=== PATIENT | female | born 1985 | race Caucasian/White ===

== ENCOUNTER 2016-12-03 09:08 | Inpatient (IN) | payer BC ==
[2016-12-03 09:37] VITALS: BMI 25.8
--- NOTE | 2016-12-03 12:24 | HP ---
COWS - Scale Resting Pulse: 1= CT 81-100 Sweatin= Chills/Flushing Restless Observation: 3= Extraneous Movement Pupil Size: 2= Moderately Dilated Bone or Joint Aches: 4=Acute Joint/Muscle Pain Runny Nose/ Eye Tearin= None GI Upset > 30mins: 2= Nausea/Diarrhea Tremor Observation: 2= Slight Tremor Visible Yawning Observation: 1= 1-2x During Session Anxiety or Irritability: 2=Irritable/Anxious Goose Flesh Skin: 0=Smooth Skin COWS Score: 18 CIWA Score - CIWA Score Nausea/Vomitin Muscle Tremors: 3 Anxiety: 4-Mod. Anxious/Guarded Agitation: 3 Paroxysmal Sweats: 1-Minimal Palms Moist Orientation: 0-Oriented Tacttile Disturbances: 3-Moderate Itch/Numb/Burn Auditory Disturbances: 0-None Visual Disturbances: 0-None Headache: 2-Mild CIWA-Ar Total Score: 19 Admission ROS S - HPI Chief Complaint: DETOX TX FOR HEROIN, VICODAN AND ALCOHOL DEPENDENCE AND SPORADIC USE OF XANAX. Allergies/Adverse Reactions: Allergies Allergy/AdvReac Type Severity Reaction Status Date / Time No Known Allergies Allergy Verified 12/03/16 10:38 History of Present Illness: 31 Y/O FEMALE WITH A HX OF HEROIN, VICODAN,AND ALCOHOL DEPENDENCE AND SOME DAYS USE OF XANAX HERE SEEKING DETOX TX Exam Limitations: No Limitations - Ebola screening Have you traveled outside of the country in the last 21 days: No Have you had contact with anyone from an Ebola affected area: No Have you been sick,other than usual withdrawal symptoms: No Do you have a fever: No - Review of Systems Constitutional: Chills, Loss of Appetite, Night Sweats, Changes in sleep EENT: reports: Blurred Vision (WEARS GLASSES), Tearing, Nose Congestion, Dental Problems (MISSING TEETH LEFT SIDE TOP/BOTTOM) Respiratory: reports: No Symptoms reported Cardiac: reports: Lightheadedness GI: reports: Constipated, Diarrhea, Nausea, Poor Appetite, Poor Fluid Intake, Vomiting, Indigestion, Abdominal cramping : reports: Dysuria, Pain Musculoskeletal: reports: Back Pain, Joint Pain, Muscle Pain Integumentary: reports: No Symptoms Reported Neuro: reports: Headache, Tremors, Unsteady Gait, Dizziness Endocrine: reports: No Symptoms Reported Hematology: reports: No Symptoms Reported Psychiatric: reports: Orientated x3, Anxious, Depressed Other Systems: Reviewed and Negative Patient History - Patient Medical History Hx Anemia: No Hx Asthma: Yes (MDI) Hx Chronic Obstructive Pulmonary Disease (COPD): No Hx Cardiac Disorders: No Hx Hypertension: No Hx Hypercholesterolemia: No HX Cerebrovascular Accident: No Hx Seizures: No Hx Diabetes: No Hx Gastrointestinal Disorders: No Hx Genitourinary Disorders: No Hx Sexually Transmitted Disorders: No Hx Renal Disease (ESRD): No Hx Thyroid Disease: Yes (HYPOTHYROIDISM--SYNTHROID 50 MCG DAILY) Hx Human Immunodeficiency Virus (HIV): No (NEGATIVE HX; REQUESTING RE-TESTING. 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 - Patient Surgical History Past Surgical History: Yes Hx Orthopedic Surgery: Yes (R knee ACL repair) Anesthesia Reaction: No - PPD History Previous Implant?: Yes Documented Results: Negative w/proof Implanted On Prior R Admission?: Yes Date: 12/24/15 Results: 0 mm PPD to be Administered?: No - Reproductive History Patient is a Female of Child Bearing Age (11 -55 yrs old): Yes Last Menstrual Period: 11/30/16 Patient : No - Smoking Cessation Smoking history: Current every day smoker Have you smoked in the past 12 months: Yes Aproximately how many cigarettes per day: 6 Hx Chewing Tobacco Use: No Initiated information on smoking cessation: Yes 'Breaking Loose' booklet given: 12/03/16 - Substance & Tx. History Hx Alcohol Use: Yes (VODKA) Hx Substance Use: Yes (HEROIN/VICODAN/PERCOCETS/XANAX) Substance Use Type: Alcohol, Heroin, Opiates, Tranquilizers Hx Substance Use Treatment: Yes ([facility]OX) - Substances Abused Heroin Route: Inhalation Frequency: Daily Amount used: 5-6 bags Age of first use: 23 Date of Last Use: 12/02/16 Alcohol-vodka Route: Oral Frequency: Daily Amount used: 2 pts. Age of first use: 18 Date of Last Use: 12/02/16 Xanax Route: Oral Frequency: Daily Amount used: 2 mg. Age of first use: 31 Date of Last Use: 12/01/16 Vicodin or Percocet Route: Oral Frequency: 1-2 times per week Amount used: 5-6 tabs. (7.5 mg.)/4 tabs. (10 mg.) Age of first use: 21 Date of Last Use: 12/03/16 Family Disease History - Family Disease History Family History: Denies Admission Physical Exam [facility] - Vital Signs Vital Signs: Vital Signs - 24 hr 12/03/16 09:33 Temperature 97.0 F L Pulse Rate 89 Respiratory 20 Rate Blood Pressure 141/89 - Physical General Appearance: Yes: Moderate Distress, Irritable, Anxious HEENTM: Yes: EOMI, Normocephalic, LILLIAN, Pharynx Normal Respiratory: Yes: Chest Non-Tender, Lungs Clear Neck: Yes: No masses,lesions,Nodules, Supple, Trachea in good position Breast: Yes: Breast Exam Deferred Cardiology: Yes: Regular Rate, S1, S2 Abdominal: Yes: Normal Bowel Sounds, Non Tender, Soft Genitourinary: Yes: Other (N/C) Back: Yes: Within Normal Limits Musculoskeletal: Yes: full range of Motion, Gait Steady Extremities: Yes: Normal Range of Motion, Non-Tender, Tremors Neurological: Yes: 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 intact, Fully Oriented, Alert, Motor Strength 5/5 Integumentary: Yes: Dry, Warm Lymphatic: Yes: Within Normal Limits - Diagnostic (1) Alcohol dependence with uncomplicated withdrawal Current Visit: Yes Status: Acute (2) Nicotine dependence Current Visit: Yes Status: Acute Qualifiers: Nicotine product type: cigarettes Substance use status: in withdrawal Qualified Code(s): F17.213 - Nicotine dependence, cigarettes, with withdrawal (3) Opioid dependence with withdrawal Current Visit: Yes Status: Acute (4) Sedative abuse Current Visit: Yes Status: Acute (5) History of hypothyroidism Current Visit: Yes Status: Chronic Comment: ON SYNTHROID 50 MCG PO DAILY (6) Asthma Current Visit: Yes Status: Chronic Qualifiers: Asthma severity: mild intermittent Asthma complication type: uncomplicated Qualified Code(s): J45.20 - Mild intermittent asthma, uncomplicated (7) HSV (herpes simplex virus) infection Current Visit: Yes Status: Acute Comment: ON VALTREX THERAPY Cleared for Admission [facility] - Detox or Rehab [facility] Level of Care: Medically Managed Detox Regimen/Protocol: Methadone/Valium [facility] Breath Alcohol Content Breath Alcohol Content: 0 Urine Pregancy Test - Result Urine Test Results: Negative- NO Line Present Urine Drug Screen - Results Drug Screen Negative: No Urine Drug Screen Results: OPI-Opiates, BZO-Benzodiazepines
[2016-12-03] MEDS ORDERED: ACETAMINOPHEN 325 MG TABLET (FP) PO PRN (12:45)
[2016-12-03] MEDS ORDERED: guaiFENesin/D-METHORPHAN HB 10 ML UNIT-DOSE CUPS PO PRN (12:45)
[2016-12-03] MEDS ORDERED: MENTHOL/PHENOL 1 EACH UD MM PRN (12:45)
[2016-12-03] MEDS ORDERED: MAGNESIUM HYDROX 2400MG/30ML ORAL SUSPENSION 30 ML CUP PO PRN (12:45)
[2016-12-03] MEDS ORDERED: P-EPHED 60MG/TRIPROLIDI 2.5MG TABLET PO PRN (12:45)
[2016-12-03] MEDS ORDERED: LOPERAMIDE HCL 2 MG CAPSULE PO PRN (12:45)
[2016-12-03] MEDS ORDERED: MAGNESIUM CITRATE 300 ML BOTTLE PO PRN (12:45)
[2016-12-03] MEDS ORDERED: MAG HYDROX/AL HYDROX/SIMETH 30 ML UNIT-DOSE CUP PO PRN (12:45)
[2016-12-03] MEDS ORDERED: diphenhydrAMINE HCL 50 MG CAPSULE PO PRN (12:45)
[2016-12-03] MEDS ORDERED: NICOTINE POLACRILEX 2 MG GUM BUC PRN (12:45)
[2016-12-03] MEDS ORDERED: diazePAM 5 MG TABLET PO ONE (13:08)
[2016-12-03] MEDS ORDERED: METHADONE HCL 10 MG TABLET (FOR DETOX USE ONLY) PO ONE ×2 (13:11→23:00)
[2016-12-03] MEDS: LEVOTHYROXINE NA 25 MCG TABLET (FP) PO SCH (13:28)
[2016-12-03] MEDS: valACYclovir HCL 500 MG TABLET (FP) PO SCH (13:28)
[2016-12-03] MEDS ORDERED: ONDANSETRON *ODT* 4 MG TABLET SL PRN (13:49)
[2016-12-03] MEDS ORDERED: TRIMETHOBENZAMIDE HCL 200MG/2ML INJ IM ONE (14:04)
[2016-12-03] MEDS: NICOTINE 14 MG/24 HOURS TOPICAL PATCH TD SCH (14:25)
[2016-12-03] MEDS: diazePAM 5 MG TABLET PO SCH ×2 (14:28→22:22)
[2016-12-03 17:14] LABS: URINE APPEARANCE CLEAR; URINE BILIRUBIN NEGATIVE (NEGATIVE); URINE COLOR LTYELLOW; URINE GLUCOSE (UA) NEGATIVE (NEGATIVE); URINE KETONE NEGATIVE (NEGATIVE); URINE LEUK ESTERASE NEGATIVE (NEGATIVE); URINE NITRITE NEGATIVE (NEGATIVE); URINE PROTEIN NEGATIVE (NEGATIVE); URINE UROBILINOGEN NEGATIVE E.U./dl (0.2-1.0)
[2016-12-03] MEDS: diazePAM 5 MG TABLET PO PRN (17:26)
[2016-12-03] MEDS ORDERED: ALBUTEROL SO4 6.7 GM HFA INHALER IH PRN (17:39)
[2016-12-03 17:40] LABS: URINE BLOOD 3+ (NEGATIVE)
[2016-12-03 17:47] LABS: URINE BACTERIA RARE /hpf (NONE SEEN); URINE MUCUS FEW; URINE RBC 30 /hpf (0-3); URINE WBC 4 /hpf (3-5)
[2016-12-03] MEDS: THIAMINE HCL 100 MG TABLET (FP) PO SCH (22:23)
[2016-12-04] MEDS: diazePAM 5 MG TABLET PO SCH ×3 (05:23→22:11)
[2016-12-04] MEDS: LEVOTHYROXINE NA 25 MCG TABLET (FP) PO SCH (06:34)
[2016-12-04 09:54] LABS: MCH 32.8 pg (25.7-33.7); MEAN CELL VOLUME 99.3 fl (80-96); MEAN PLT VOLUME 8.8 fl (7.5-11.1); PLATELET COUNT 241 K/MM3 (134-434); RDW 13.4 % (11.6-15.6); WHITE BLOOD COUNT 5.8 K/mm3 (4.0-10.0)
--- NOTE | 2016-12-04 09:54 | PN ---
S CIWA - CIWA Score Nausea/Vomitin Muscle Tremors: 3 Anxiety: 3 Agitation: 3 Paroxysmal Sweats: 2 Orientation: 0-Oriented Tacttile Disturbances: 1-Very Mild Itch/Numbness Auditory Disturbances: 1-Very Mild Visual Disturbances: 1-Very Mild Sensitivity Headache: 2-Mild CIWA-Ar Total Score: 19 BHS COWS - Scale Resting Pulse: 0= [place] 80 or Below Sweatin= Chills/Flushing Restless Observation: 3= Extraneous Movement Pupil Size: 1= Pupils >than Normal Bone or Joint Aches: 2= Severe Diffuse Aches Runny Nose/ Eye Tearin= Runny Nose/Eyes GI Upset > 30mins: 3= Vomiting/Diarrhea Tremor Observation of Outstretched Hands: 2= Slight Tremor Visible Yawning Observation: 1= 1-2x During Session Anxiety or Irritability: 2=Irritable/Anxious Goose Flesh Skin: 0=Smooth Skin COWS Score: 17 S Progress Note (SOAP) Subjective: ALERT,IRRITABLE,ANXIOUS,PAIN IN THE BODY,JOINT,INTERRUPTED SLEEP,TREMOR Objective: 12/04/16 09:51 Vital Signs Temperature 97.5 F L 12/04/16 05:50 Pulse Rate 70 12/04/16 05:50 Respiratory Rate 16 12/04/16 05:50 Blood Pressure 98/64 12/04/16 05:50 O2 Sat by Pulse Oximetry (%) EKG SINUS BRADYCARDIA,RATE 47,INVERTED T IN V1,V2 NO CHEST PAIN,NO SOB,NO DIZZINESS Laboratory Last Values Urine Color Ltyellow 12/03/16 14:00 Urine Appearance Clear 12/03/16 14:00 Urine pH 5.0 (5.0-8.0) 12/03/16 14:00 Ur Specific [place] 1.016 (1.001-1.035) 12/03/16 14:00 Urine Protein Negative (NEGATIVE) 12/03/16 14:00 Urine Glucose (UA) Negative (NEGATIVE) 12/03/16 14:00 Urine Ketones Negative (NEGATIVE) 12/03/16 14:00 Urine Blood 3+ (NEGATIVE) H 12/03/16 14:00 Urine Nitrite Negative (NEGATIVE) 12/03/16 14:00 Urine Bilirubin Negative (NEGATIVE) 12/03/16 14:00 Urine Urobilinogen Negative E.U./dl (0.2-1.0) 12/03/16 14:00 Ur Leukocyte Esterase Negative (NEGATIVE) 12/03/16 14:00 Urine RBC 30 /hpf (0-3) 12/03/16 14:00 Urine WBC 4 /hpf (3-5) 12/03/16 14:00 Ur Epithelial Cells Moderate /hpf (FEW) 12/03/16 14:00 Urine Bacteria Rare /hpf (NONE SEEN) 12/03/16 14:00 Urine Mucus Few 12/03/16 14:00 LABS PENDING Assessment: 12/04/16 09:53 WITHDRAWAL SYMPTOM Plan: CONTINUE DETOX,REPEAT UA
[2016-12-04] MEDS ORDERED: METHADONE HCL 10 MG TABLET (FOR DETOX USE ONLY) PO SCH (10:00)
[2016-12-04 10:12] LABS: ALBUMIN 4.5 g/dl (3.4-5.0); ALK PHOS 85 U/L (45-117); ANION GAP 10 (8-16); BILIRUBIN,TOTAL 0.5 mg/dL (0.2-1.0); CALCIUM 9.1 mg/dL (8.5-10.1); CO2 27 mmol/L (21-32); CREATININE 0.8 mg/dL (0.55-1.02); GLUCOSE,RANDOM 91 mg/dL (74-106); SGOT/AST 15 U/L (15-37); SGPT/ALT 16 U/L (12-78); TOT PROT 7.7 g/dl (6.4-8.2)
[2016-12-04] MEDS: PRENATAL VITAMINS W/ FOLIC ACID TABLET (FP) PO SCH (10:56)
[2016-12-04] MEDS: valACYclovir HCL 500 MG TABLET (FP) PO SCH (10:57)
[2016-12-04] MEDS: NICOTINE 14 MG/24 HOURS TOPICAL PATCH TD SCH (10:57)
[2016-12-04] MEDS: diazePAM 5 MG TABLET PO PRN (11:00)
--- NOTE | 2016-12-04 11:23 | CONSULT ---
[facility] Psychiatric Consult - Data Date of interview: 12/04/16 Admission source: [facility] Identifying data: Readmission to [facility] for this 31 y/o female seeking detox treatment for alcohol,xanax and heroin dependence.Patient is single,a mother of one,domiciled (lives with boyfriend),unemployed and supported on Public Assistance. Substance Abuse History: - Smoking Cessation. Smoking history: Current every day smoker. Have you smoked in the past 12 months: Yes. Aproximately how many cigarettes per day: 6. Hx Chewing Tobacco Use: No. Initiated information on smoking cessation: Yes. 'Breaking Loose' booklet given: 12/03/16. - Substance & Tx. History. Hx Alcohol Use: Yes (VODKA). Hx Substance Use: Yes (HEROIN/ VICODAN/PERCOCETS/XANAX). Substance Use Type: Alcohol, Heroin, Opiates, Tranquilizers. Hx Substance Use Treatment: Yes ([facility]). - Substances Abused. Heroin. Route: Inhalation. Frequency: Daily. Amount used: 5-6 bags. Age of first use: 23. Date of Last Use: 12/02/16. Alcohol-vodka. Route: Oral. Frequency: Daily. Amount used: 2 pts. Age of first use: 18. Date of Last Use: 12/02/16. Xanax. Route: Oral. Frequency: Daily. Amount used: 2 mg. Age of first use: 31. Date of Last Use: 12/01/16. Vicodin or Percocet. Route: Oral. Frequency: 1-2 times per week. Amount used: 5-6 tabs. (7.5 mg.)/4 tabs. (10 mg.). Age of first use: 21. Date of Last Use: 12/03/16. Confirmed by patient. Medical History: Bronchial asthma,mitral valve prolapse,peptic ulcer disease, hypothyroidism,past treatment for genital herpes and a history of orthosurgery for ACL repair (right knee). Psychiatric History: Diagnosed with Bipolar Disorder.Patient reports a history of multiple psychiatric hospitalizations ([facility] and [facility]).Ms Larsen sees a private psychiatrist in [place], [place] for medication management (prozac 20 mg/day + trazodone 150 mg/hs).Last took her medications prior to this [facility] visit.History of a suicide attempt (wrist-cutting ) approximately 10 years ago.Chronic insomnia is endorsed by the patient. Physical/Sexual Abuse/Trauma History: No history of sexual abuse,as per self- report. Mental Status Exam - Mental Status Exam Alert and Oriented to: Time, Place, Person Cognitive Function: Good Patient Appearance: Well Groomed (tattoo noted on left arm) Mood: Nervous, Anxious, Hopeful Affect: Mood Congruent Patient Behavior: Fatigued, Appropriate, Cooperative Speech Pattern: Clear Voice Loudness: Normal Thought Process: Goal Oriented Thought Disorder: Not Present Hallucinations: Denies Suicidal Ideation: Denies Homicidal Ideation: Denies Insight/Judgement: Poor Sleep: Poorly, Difficulty falling asleep Appetite: Good Muscle strength/Tone: Normal Gait/Station: Normal Psychiatric Findings - Problem List ([place] 1, 2,3) (1) Alcohol dependence with uncomplicated withdrawal Current Visit: Yes Status: Acute (2) Opioid dependence with withdrawal Current Visit: Yes Status: Acute (3) Sedative hypnotic or anxiolytic dependence Current Visit: Yes Status: Acute (4) Nicotine dependence Current Visit: Yes Status: Acute Qualifiers: Nicotine product type: cigarettes Substance use status: in withdrawal Qualified Code(s): F17.213 - Nicotine dependence, cigarettes, with withdrawal (5) Substance induced mood disorder Current Visit: Yes Status: Acute (6) MDD (major depressive disorder) Current Visit: Yes Status: Chronic Comment: Self-report. (7) Bipolar disorder Current Visit: Yes Status: Suspected (8) HSV (herpes simplex virus) infection Current Visit: Yes Status: Chronic Comment: ON VALTREX THERAPY (9) Asthma Current Visit: Yes Status: Chronic Qualifiers: Asthma severity: mild intermittent Asthma complication type: uncomplicated Qualified Code(s): J45.20 - Mild intermittent asthma, uncomplicated (10) History of hypothyroidism Current Visit: Yes Status: Chronic Comment: ON SYNTHROID 50 MCG PO DAILY (11) Insomnia Current Visit: Yes Status: Chronic - Initial Treatment Plan Initial Treatment Plan: Psychoeducation.Detoxification.Medications : prozac 20 mg po daily + trazodone 100 mg po hs.Side effects/benefits discussed with the patient.Patient is in agreement with this plan.Observation.Pharmacy claims revisited.Noted scripts for geodon and valproate in addition to prozac/ trazodone on 11/23/16 @ [facility] Product Support Rep.Discussed with the patient.She states that she decided not to take geodon/valproate and that she will address that issue with her psychiatrist next week at next visit.No scripts needed at discharge.
[2016-12-04] MEDS: FLUoxetine HCL 20 MG CAPSULE (FP) PO SCH (12:00)
--- NOTE | 2016-12-04 13:44 | EKG ---
Test Reason : Blood Pressure : / mmHG Vent. Rate : 063 BPM Atrial Rate : 063 BPM P-R Int : 128 ms QRS Dur : 086 ms QT Int : 494 ms P-R-T Axes : 051 071 052 degrees QTc Int : 505 ms NORMAL SINUS RHYTHM PROLONGED QT ABNORMAL ECG NO PREVIOUS ECGS AVAILABLE Confirmed by JOSEFA MIRANDA, HEATHER ([id number]) on 12/04/2016 1:43:55 PM Referred By: Zander Delgadillo Confirmed By:HEATHER RIVERO MD
--- NOTE | 2016-12-04 15:57 | EKG ---
Test Reason : Blood Pressure : / mmHG Vent. Rate : 046 BPM Atrial Rate : 046 BPM P-R Int : 130 ms QRS Dur : 092 ms QT Int : 526 ms P-R-T Axes : 056 072 068 degrees QTc Int : 460 ms SINUS BRADYCARDIA OTHERWISE NORMAL ECG WHEN COMPARED WITH ECG OF 03-DEC-2016 12:40, QT HAS SHORTENED Confirmed by HEATHER RIVERO MD ([id number]) on 12/04/2016 3:57:38 PM Referred By: Zander Delgadillo Confirmed By:HEATHER RIVERO MD
[2016-12-04] MEDS: traZODone HCL 100 MG TABLET (FP) PO SCH (22:11)
[2016-12-04] MEDS: THIAMINE HCL 100 MG TABLET (FP) PO SCH (22:11)
[2016-12-05] MEDS: diazePAM 5 MG TABLET PO PRN ×3 (05:53→17:18)
[2016-12-05] MEDS: IBUPROFEN 400 MG TABLET (FP) PO PRN ×2 (05:56→15:32)
[2016-12-05] MEDS: LEVOTHYROXINE NA 25 MCG TABLET (FP) PO SCH (07:55)
[2016-12-05] MEDS: PRENATAL VITAMINS W/ FOLIC ACID TABLET (FP) PO SCH (10:24)
[2016-12-05] MEDS: valACYclovir HCL 500 MG TABLET (FP) PO SCH (10:24)
[2016-12-05] MEDS: NICOTINE 14 MG/24 HOURS TOPICAL PATCH TD SCH (10:24)
[2016-12-05] MEDS: diazePAM 5 MG TABLET PO SCH ×2 (10:25→22:22)
[2016-12-05] MEDS: METHADONE HCL 5 MG TABLET (FOR DETOX USE ONLY) PO SCH (10:25)
[2016-12-05] MEDS: FLUoxetine HCL 20 MG CAPSULE (FP) PO SCH (10:25)
--- NOTE | 2016-12-05 10:51 | PN ---
[facility] CIWA - CIWA Score Nausea/Vomitin-No Nausea/No Vomiting Muscle Tremors: 3 Anxiety: 3 Agitation: 3 Paroxysmal Sweats: 3 Orientation: 0-Oriented Tacttile Disturbances: 0-None Auditory Disturbances: 0-None Visual Disturbances: 0-None Headache: 1-Very Mild CIWA-Ar Total Score: 13 BHS COWS - Scale Resting Pulse: 0= [place] 80 or Below Sweatin=Flushed/Facial Moisture Restless Observation: 0= Sits Still Pupil Size: 0= Normal to Room Light Bone or Joint Aches: 2= Severe Diffuse Aches Runny Nose/ Eye Tearin= Nasal Congestion GI Upset > 30mins: 0= None Tremor Observation of Outstretched Hands: 2= Slight Tremor Visible Yawning Observation: 1= 1-2x During Session Anxiety or Irritability: 1=Feels Anxious/Irritable Goose Flesh Skin: 3=Piloerection COWS Score: 12 S Progress Note (SOAP) Subjective: chills sweats shakes interrupted sleep agitation anxiety body aches Objective: 12/05/16 10:50 Vital Signs Temperature 97.9 F 12/05/16 10:00 Pulse Rate 62 12/05/16 10:00 Respiratory Rate 16 12/05/16 10:00 Blood Pressure 95/62 12/05/16 10:00 O2 Sat by Pulse Oximetry (%) Laboratory Tests 12/03/16 12/04/16 12/04/16 14:00 06:00 06:00 WBC 5.8 D RBC 4.28 Hgb 14.0 Hct 42.6 MCV 99.3 H MCHC 33.0 RDW 13.4 Plt Count 241 MPV 8.8 D Sodium 143 Potassium 4.4 Chloride 106 Carbon Dioxide 27 Anion Gap 10 BUN 15 D Creatinine 0.8 Creat Clearance w eGFR > 60 Random Glucose 91 Calcium 9.1 Total Bilirubin 0.5 D AST 15 D ALT 16 Alkaline Phosphatase 85 Total Protein 7.7 D Albumin 4.5 D Urine Color Ltyellow Urine Appearance Clear Urine pH 5.0 Ur Specific [place] 1.016 Urine Protein Negative Urine Glucose (UA) Negative Urine Ketones Negative Urine Blood 3+ H Urine Nitrite Negative Urine Bilirubin Negative Urine Urobilinogen Negative Ur Leukocyte Esterase Negative Urine RBC 30 Urine WBC 4 Ur Epithelial Cells Moderate Urine Bacteria Rare Urine Mucus Few RPR Titer 12/04/16 06:00 WBC RBC Hgb Hct MCV MCHC RDW Plt Count MPV Sodium Potassium Chloride Carbon Dioxide Anion Gap BUN Creatinine Creat Clearance w eGFR Random Glucose Calcium Total Bilirubin AST ALT Alkaline Phosphatase Total Protein Albumin Urine Color Urine Appearance Urine pH Ur Specific [place] Urine Protein Urine Glucose (UA) Urine Ketones Urine Blood Urine Nitrite Urine Bilirubin Urine Urobilinogen Ur Leukocyte Esterase Urine RBC Urine WBC Ur Epithelial Cells Urine Bacteria Urine Mucus RPR Titer Nonreactive awake/alert ambulating no acute distress Assessment: 12/05/16 10:51 withdrawal sx Plan: continue detox increase fluids
[2016-12-05 18:51] LABS: URINE APPEARANCE CLEAR; URINE BILIRUBIN NEGATIVE (NEGATIVE); URINE BLOOD NEGATIVE (NEGATIVE); URINE COLOR COLORLESS; URINE GLUCOSE (UA) NEGATIVE (NEGATIVE); URINE KETONE NEGATIVE (NEGATIVE); URINE LEUK ESTERASE NEGATIVE (NEGATIVE); URINE NITRITE NEGATIVE (NEGATIVE); URINE PROTEIN NEGATIVE (NEGATIVE); URINE UROBILINOGEN NEGATIVE E.U./dl (0.2-1.0)
[2016-12-05] MEDS: traZODone HCL 100 MG TABLET (FP) PO SCH (22:22)
[2016-12-05] MEDS: THIAMINE HCL 100 MG TABLET (FP) PO SCH (22:22)
[2016-12-06] MEDS: diazePAM 5 MG TABLET PO PRN ×2 (02:46→07:06)
[2016-12-06] MEDS: IBUPROFEN 400 MG TABLET (FP) PO PRN ×3 (02:46→22:15)
[2016-12-06] MEDS: LEVOTHYROXINE NA 25 MCG TABLET (FP) PO SCH (06:39)
[2016-12-06] MEDS: PRENATAL VITAMINS W/ FOLIC ACID TABLET (FP) PO SCH (10:32)
[2016-12-06] MEDS: valACYclovir HCL 500 MG TABLET (FP) PO SCH (10:32)
[2016-12-06] MEDS: FLUoxetine HCL 20 MG CAPSULE (FP) PO SCH (10:32)
[2016-12-06] MEDS: METHADONE HCL 5 MG TABLET (FOR DETOX USE ONLY) PO SCH (10:33)
[2016-12-06] MEDS: diazePAM 5 MG TABLET PO SCH ×2 (10:33→22:15)
[2016-12-06] MEDS: NICOTINE 14 MG/24 HOURS TOPICAL PATCH TD SCH (10:33)
--- NOTE | 2016-12-06 11:41 | PN ---
[facility] Progress Note (SOAP) Subjective: interrupted sleep, sweats , shakes Objective: 12/06/16 11:40 Vital Signs Temperature 97.9 F 12/06/16 10:16 Pulse Rate 80 12/06/16 10:16 Respiratory Rate 20 12/06/16 10:16 Blood Pressure 100/64 12/06/16 10:16 O2 Sat by Pulse Oximetry (%) Laboratory Tests 12/03/16 12/04/16 12/04/16 14:00 06:00 06:00 WBC 5.8 D RBC 4.28 Hgb 14.0 Hct 42.6 MCV 99.3 H MCHC 33.0 RDW 13.4 Plt Count 241 MPV 8.8 D Sodium 143 Potassium 4.4 Chloride 106 Carbon Dioxide 27 Anion Gap 10 BUN 15 D Creatinine 0.8 Creat Clearance w eGFR > 60 Random Glucose 91 Calcium 9.1 Total Bilirubin 0.5 D AST 15 D ALT 16 Alkaline Phosphatase 85 Total Protein 7.7 D Albumin 4.5 D Urine Color Ltyellow Urine Appearance Clear Urine pH 5.0 Ur Specific [place] 1.016 Urine Protein Negative Urine Glucose (UA) Negative Urine Ketones Negative Urine Blood 3+ H Urine Nitrite Negative Urine Bilirubin Negative Urine Urobilinogen Negative Ur Leukocyte Esterase Negative Urine RBC 30 Urine WBC 4 Ur Epithelial Cells Moderate Urine Bacteria Rare Urine Mucus Few RPR Titer 12/04/16 12/05/16 06:00 17:30 WBC RBC Hgb Hct MCV MCHC RDW Plt Count MPV Sodium Potassium Chloride Carbon Dioxide Anion Gap BUN Creatinine Creat Clearance w eGFR Random Glucose Calcium Total Bilirubin AST ALT Alkaline Phosphatase Total Protein Albumin Urine Color Colorless Urine Appearance Clear Urine pH 6.0 Ur Specific [place] 1.003 Urine Protein Negative Urine Glucose (UA) Negative Urine Ketones Negative Urine Blood Negative Urine Nitrite Negative Urine Bilirubin Negative Urine Urobilinogen Negative Ur Leukocyte Esterase Negative Urine RBC Urine WBC Ur Epithelial Cells Urine Bacteria Urine Mucus RPR Titer Nonreactive pt aox3 in nad ambulating Assessment: 12/06/16 11:41 withdrawal sx;s Plan: cont. detox increase fluids
[2016-12-06] MEDS: hydrOXYzine PAMOATE 25 MG CAPSULE (FP) PO PRN (14:44)
[2016-12-06] MEDS: THIAMINE HCL 100 MG TABLET (FP) PO SCH (22:15)
[2016-12-06] MEDS: traZODone HCL 100 MG TABLET (FP) PO SCH (22:15)
[2016-12-07] MEDS: hydrOXYzine PAMOATE 25 MG CAPSULE (FP) PO PRN ×2 (05:06→22:40)
[2016-12-07] MEDS: LEVOTHYROXINE NA 25 MCG TABLET (FP) PO SCH (07:00)
[2016-12-07] MEDS: IBUPROFEN 400 MG TABLET (FP) PO PRN ×2 (07:03→22:40)
[2016-12-07] MEDS ORDERED: METHADONE HCL 10 MG TABLET (FOR DETOX USE ONLY) PO SCH (10:00)
[2016-12-07] MEDS ORDERED: diazePAM 5 MG TABLET PO SCH (10:00)
[2016-12-07] MEDS: PRENATAL VITAMINS W/ FOLIC ACID TABLET (FP) PO SCH (10:36)
[2016-12-07] MEDS: valACYclovir HCL 500 MG TABLET (FP) PO SCH (10:37)
[2016-12-07] MEDS: FLUoxetine HCL 20 MG CAPSULE (FP) PO SCH (10:37)
--- NOTE | 2016-12-07 10:37 | PN ---
S Progress Note (SOAP) Subjective: ALERT,IRRITABLE,INTERRUPTED SLEEP Objective: 12/07/16 10:36 Vital Signs Temperature 97.2 F L 12/07/16 10:14 Pulse Rate 81 12/07/16 10:14 Respiratory Rate 18 12/07/16 10:14 Blood Pressure 99/66 12/07/16 10:14 O2 Sat by Pulse Oximetry (%) Assessment: 12/07/16 10:36 WITHDRAWAL SYMPTOM Plan: CONTINUE DETOX,DISCHARGE IN AM
[2016-12-07] MEDS: NICOTINE 14 MG/24 HOURS TOPICAL PATCH TD SCH (10:38)
[2016-12-07] MEDS: CYCLOBENZAPRINE HCL 10 MG TABLET (FP) PO PRN ×2 (11:12→22:40)
[2016-12-07] MEDS: THIAMINE HCL 100 MG TABLET (FP) PO SCH (22:39)
[2016-12-07] MEDS: traZODone HCL 100 MG TABLET (FP) PO SCH (22:39)
[2016-12-08] MEDS: hydrOXYzine PAMOATE 25 MG CAPSULE (FP) PO PRN (05:18)
[2016-12-08] MEDS: IBUPROFEN 400 MG TABLET (FP) PO PRN (05:18)
[2016-12-08] MEDS ORDERED: METHADONE HCL 5 MG TABLET (FOR DETOX USE ONLY) PO SCH (06:00)
[2016-12-08 06:15] VITALS: BP 102/73; PULSE 84; TEMP 97.6
[2016-12-08] MEDS: LEVOTHYROXINE NA 25 MCG TABLET (FP) PO SCH (07:08)
--- NOTE | 2016-12-08 08:42 | PN ---
S Progress Note (SOAP) Subjective: ALERT,NO COMPLAINT Objective: 12/08/16 08:41 Vital Signs Temperature 97.6 F 12/08/16 06:14 Pulse Rate 84 12/08/16 06:14 Respiratory Rate 18 12/08/16 06:14 Blood Pressure 102/73 12/08/16 06:14 O2 Sat by Pulse Oximetry (%) Assessment: 12/08/16 08:41 DETOX COMPLETED,NO WITHDRAWAL SYMPTOM Plan: DISCHARGE TODAY,FOLLOW UP WITH AFTER CARE PROGRAM ARRANGEMENT
--- NOTE | 2016-12-08 08:50 | DS ---
[facility] Detox Discharge Summary Admission Date: 12/03/16 Discharge Date: 12/08/16 - History Present History: Alcohol Dependence, Opioid Dependence, Sedative Dependence Additional Comments: FOLLOW UP WITH AFTER CARE PROGRAM ARRANGEMENT AND PMD AND PHYCHATRIST FOR FOLLOW UP PATIENT HAS ALL MEDICATIONS AT HOME Pertinent Past History: ASTHMA HERPES SIPLEX NICOTINE DEPENDENCE - Physical Exam Results Vital Signs: Vital Signs Temperature 97.6 F 12/08/16 06:14 Pulse Rate 84 12/08/16 06:14 Respiratory Rate 18 12/08/16 06:14 Blood Pressure 102/73 12/08/16 06:14 O2 Sat by Pulse Oximetry (%) Pertinent Admission Physical Exam Findings: WITHDRAWAL SYMPTOM - Treatment Hospital Course: Detox Protocol Followed, Detoxed Safely, Responded well, Discharged Condition Good Patient has Accepted a Rehab Referral to: DECLINED - Medication Discharge Medications: Ambulatory Orders Levothyroxine [Synthroid -] 50 mcg PO DAILY 12/22/15 Fluoxetine HCl [Prozac -] 20 mg PO DAILY 12/03/16 Trazodone HCl [Desyrel -] 150 mg PO HS 12/03/16 Valacyclovir HCl [Valtrex -] 500 mg PO DAILY 12/03/16 - Diagnosis (1) Alcohol dependence with uncomplicated withdrawal Current Visit: Yes Status: Acute (2) Opioid dependence with withdrawal Current Visit: Yes Status: Acute (3) Sedative hypnotic or anxiolytic dependence Current Visit: Yes Status: Acute (4) Asthma Current Visit: Yes Status: Chronic Qualifiers: Asthma severity: mild intermittent Asthma complication type: uncomplicated Qualified Code(s): J45.20 - Mild intermittent asthma, uncomplicated (5) HSV (herpes simplex virus) infection Current Visit: Yes Status: Chronic (6) History of hypothyroidism Current Visit: Yes Status: Chronic (7) Bipolar I disorder with mixed features Current Visit: No Status: Chronic - AMA Did Patient Leave Against Medical Advice: No
== END 2016-12-08 09:10 | disposition home or self-care (01) | DRG 773 ==
LOC: YASAS 09:08 → Y6N 12:55
PROVIDERS: ADMIT Internal Medicine Addiction Medicine; ATTEND Internal Medicine Addiction Medicine
PROC: HZ2ZZZZ Detoxification Services for Substance Abuse Treatment (ICD-10-PCS; principal; 2016-12-08)
DX: F11.23 Opioid dependence with withdrawal (principal); F13.20 Sedative, hypnotic or anxiolytic dependence, uncomplicated; F10.230 Alcohol dependence with withdrawal, uncomplicated; F31.81 Bipolar II disorder; F19.24 Other psychoactive substance dependence with psychoactive substance-induced mood disorder; J45.20 Mild intermittent asthma, uncomplicated; E03.9 Hypothyroidism, unspecified; B00.9 Herpesviral infection, unspecified
CPT/HCPCS: 36415; 80053; 81003; 81015; 85027; 86593; 93005; 93010

== ENCOUNTER 2019-09-11 16:28 | Inpatient (IN) | payer OTHER ==
[2019-09-11 18:16] VITALS: BMI 23.1
--- NOTE | 2019-09-11 19:25 | HP ---
"CIWA Score - Admission Criteria [facility]ASAS Guidelines: Admission for Medically Managed Detox: Requires at least one of the followin. CIWA greater than 12 2. Seizures within the past 24 hours 3. Delirium tremens within the past 24 hours 4. Hallucinations within the past 24 hours 5. Acute intervention needed for co occurring medical disorder 6. Acute intervention needed for co occurring psychiatric disorder 7. Severe withdrawal that cannot be handled at a lower level of care (continued vomiting, continued diarrhea, abnormal vital signs) requiring intravenous medication and/or fluids 8. Admitting History and Physical - Past Medical History ...LMP: 11/30/16 - Smoking History Smoking history: Current every day smoker Have you smoked in the past 12 months: Yes Aproximately how many cigarettes per day: 6 - Alcohol/Substance Use Hx Alcohol Use: Yes (VODKA) Admission ROS [facility] Chief Complaint: transferred form [facility] for rehab Allergies/Adverse Reactions: Allergies Allergy/AdvReac Type Severity Reaction Status Date / Time No Known Allergies Allergy Verified 09/11/19 18:06 History of Present Illness: CLIENT PRESENT FOR REHAB FROM ALCOHOL. SHE IS REFERRED BY [facility] AFTER COMPLETING DETOX THERE FROM 09/03 TO 09/10/2019. SHE IS ALSO ON SBX MAINTENANCE 16 MG DAILY. SHE IS KNOWN TO THE PROGRAM LAST HERE 2016. REPORTS HX/O 1 DRUG OVERDOSE THIS PAST YEAR, + BLACK OUTS. DENIES ANY SIGNIFICANT PERIOD OF CLEAN TIME THIS PAST YEAR. CLIENT REPORTS APPROX 2 PINTS OF VODKA DAILY. DENIES HX/O SZ. 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 LIVES WITH FRIEND, UNEMPLOYED- [employer], DENIES LEGALS. PRESENTS WITH DC PAPERS. REVIEWED. REFER TO CHAPIN IN CHART. Search Terms: omar larsen, 1985Search Date: 09/11/2019 07:21:03 PM The Drug Utilization Report below displays all of the controlled substance prescriptions, if any, that your patient has filled in the last twelve months. The information displayed on this report is compiled from pharmacy submissions to the Department, and accurately reflects the information as submitted by the pharmacies. This report was requested by: Lencho Monreal | Reference #: [id number] You have not added a MICHELLE number. Keeping your MICHELLE number(s) up to date on the My MICHELLE Numbers page will enable the separation of your prescriptions from others ' in the search results. Others' Prescriptions Patient Name: Omar Larsen Date: 1985 Address: [address] [place] [address] Sex: Female Rx Written Rx Dispensed Drug Quantity Days Supply Prescriber Name 08/08/2019 08/08/2019 buprenorphine-naloxone 8-2 mg sl film 60 30 [facility] 08/08/2019 08/08/2019 dextroamp-amphetamin 10 mg tab 30 30 Prashant-Amos , [facility] 08/07/2019 08/07/2019 alprazolam 1 mg tablet 60 30 NikKaur MD 08/03/2019 08/03/2019 dextroamp-amphetamin 10 mg tab 7 7 Prashant-Amos, [facility] 08/03/2019 08/03/2019 buprenorphine-naloxone 8-2 mg sl film 14 7 Prashant-Amos, [facility] 07/25/2019 07/25/2019 buprenorphine 8 mg tablet sl 7 7 Prashant-Amos, [facility] 07/25/2019 07/25/2019 dextroamp-amphetamin 10 mg tab 7 7 Prashant-Amos, [facility] 07/09/2019 07/09/2019 alprazolam 1 mg tablet 60 30 NikKaur MD 06/25/2019 06/25/2019 buprenorphine 8 mg tablet sl 30 30 Prashant-Amos, [facility] 06/25/2019 06/25/2019 dextroamp-amphetamin 10 mg tab 30 30 Prashant-Amos , [facility] 06/11/2019 06/11/2019 alprazolam 1 mg tablet 60 30 NikKaur MD 06/08/2019 06/08/2019 buprenorphine 2 mg tablet sl 14 7 Prashant-Amos, [facility] 05/16/2019 05/20/2019 buprenorphine 8 mg tablet sl 30 30 Prashant-Amos, [facility] 05/14/2019 05/14/2019 alprazolam 1 mg tablet 60 30 NikKaur MD Exam Limitations: No Limitations - Ebola screening Have you traveled outside of the country in the last 21 days: No (N) Have you had contact with anyone from an Ebola affected area: No Do you have a fever: No - Review of Systems Constitutional: Malaise EENT: reports: Blurred Vision (RX GLASSES), Dental Problems (MNISSING TEETH) Respiratory: reports: No Symptoms reported Cardiac: reports: No Symptoms Reported GI: reports: No Symptoms Reported : reports: No Symptoms Reported Musculoskeletal: reports: Back Pain (CHRONIC) Integumentary: reports: No Symptoms Reported Neuro: reports: Headache Endocrine: reports: Other (HYPOTHYROIDISM ON SYNTHORID) Hematology: reports: No Symptoms Reported Psychiatric: reports: Orientated x3, Anxious Other Systems: Reviewed and Negative Patient History - Patient Medical History Hx Anemia: No Hx Asthma: Yes (MDI) Hx Chronic Obstructive Pulmonary Disease (COPD): No Hx Cancer: No Hx Cardiac Disorders: No Hx Congestive Heart Failure: No Hx Hypertension: No Hx Hypercholesterolemia: No Hx Pacemaker: No HX Cerebrovascular Accident: No Hx Seizures: No Hx Dementia: No Hx Diabetes: No Hx Gastrointestinal Disorders: No Hx Liver Disease: No Hx Genitourinary Disorders: No Hx Sexually Transmitted Disorders: No Hx Renal Disease (ESRD): No Hx Thyroid Disease: Yes (HYPOTHYROIDISM--SYNTHROID 25MCG) Hx Human Immunodeficiency Virus (HIV): No Hx Hepatitis C: No Hx Depression: Yes Hx Suicide Attempt: No (DENIES) Hx Bipolar Disorder: Yes Hx Schizophrenia: No (SCHIZOAFFECTIVE) Other Medical History: PSYCH CONSULT APPRECIATED SEE ATTACHED - Patient Surgical History Past Surgical History: Yes Hx Orthopedic Surgery: Yes (R knee ACL repair) Anesthesia Reaction: No - PPD History Previous Implant?: Yes Documented Results: Negative w/proof Implanted On Prior [facility] Admission?: Yes Date: 12/24/15 Results: 0 mm PPD to be Administered?: Yes - Reproductive History Patient is a Female of Child Bearing Age (11 -55 yrs old): Yes Last Menstrual Period: 09/11/19 [place] : [place] [facility] [place] - Smoking Cessation Smoking history: Current every day smoker Have you smoked in the past 12 months: Yes Aproximately how many cigarettes per day: 8 Cigars Per Day: 0 Hx Chewing Tobacco Use: No Initiated information on smoking cessation: Yes 'Breaking Loose' booklet given: 09/11/19 - Substance & Tx. History Hx Alcohol Use: Yes Hx Substance Use: Yes Substance Use Type: Alcohol, Prescribed (SBX) Hx Substance Use Treatment: Yes ([facility]) - Substances abused Alcohol Substance route: Oral Frequency: Daily Amount used: 2 PINTS OF VODKA Age of first use: 18 Date of last use: 09/03/19 Admission Physical Exam [facility] - Vital Signs Vital Signs: Vital Signs - 24 hr 09/11/19 18:03 Temperature 98 F Pulse Rate 73 Respiratory 17 Rate Blood Pressure 114/71 - Physical General Appearance: Yes: Appropriately Dressed, Anxious HEENTM: Yes: EOMI, Normocephalic, Normal Voice, LILLIAN, Pharynx Normal Respiratory: Yes: Chest Non-Tender, Lungs Clear, Normal Breath Sounds, No Respiratory Distress, No Accessory Muscle Use Neck: Yes: No masses,lesions,Nodules, Supple, Trachea in good position Breast: Yes: Breasts Symetrical Cardiology: Yes: Regular Rhythm, Regular Rate, S1, S2 Abdominal: Yes: Normal Bowel Sounds, Non Tender, Soft Genitourinary: Yes: Within Normal Limits Back: Yes: Normal Inspection Musculoskeletal: Yes: full range of Motion, Gait Steady Extremities: Yes: Normal Capillary Refill, Normal Range of Motion, Non-Tender, Tremors Neurological: Yes: Fully Oriented, Alert, Motor Strength 5/5 Integumentary: Yes: Dry, Warm Lymphatic: Yes: Within Normal Limits - Diagnostic (1) Alcohol dependence, uncomplicated Current Visit: Yes Status: Acute (2) Prolonged QT interval Current Visit: Yes Status: Chronic (3) Nicotine dependence Current Visit: Yes Status: Chronic Qualifiers: Nicotine product type: cigarettes Substance use status: uncomplicated Qualified Code(s): F17.210 - Nicotine dependence, cigarettes, uncomplicated (4) Substance induced mood disorder Current Visit: Yes Status: Suspected (5) Asthma Current Visit: Yes Status: Chronic Qualifiers: Asthma severity: mild intermittent Asthma complication type: uncomplicated (6) History of hypothyroidism Current Visit: Yes Status: Chronic (7) Insomnia Current Visit: Yes Status: Chronic Qualifiers: Insomnia type: unspecified Qualified Code(s): G47.00 - Insomnia, unspecified (8) MDD (major depressive disorder) Current Visit: Yes Status: Chronic Qualifiers: Major depression recurrence: unspecified whether recurrent Major depression episode severity: unspecified Comment: Self-report. (9) Bipolar disorder Current Visit: Yes Status: Chronic Cleared for Admission [facility] - Detox or Rehab Detox Regimen/Protocol: Not Applicable Claeared for Rehab Admission: Yes Inpatient Rehab Admission - Rehab Decision to Admit Inpatient rehab admission?: Yes - Initial Determination Are CD services needed?: Yes Free of communicable disease: Yes Not in need of hospitalization: Yes - Rehab Admission Criteria Previous failed treatment: Yes Poor recovery environment: Yes Comorbidities: Yes Lacks judgement: No Patient is meeting Inpatient Rehab admission criteria:: Yes"
[2019-09-11] MEDS ORDERED: ALBUTEROL SO4 8 GM HFA INHALER IH PRN (19:48)
[2019-09-11] MEDS ORDERED: MAGNESIUM HYDROX 2400MG/30ML ORAL SUSPENSION 30 ML CUP PO PRN (19:51)
[2019-09-11] MEDS ORDERED: LOPERAMIDE HCL 2 MG CAPSULE PO PRN (19:51)
[2019-09-11] MEDS ORDERED: MENTHOL/PHENOL 1 EACH UD MM PRN (19:51)
[2019-09-11] MEDS ORDERED: MAGNESIUM CITRATE 300 ML BOTTLE PO PRN (19:51)
[2019-09-11] MEDS ORDERED: guaiFENesin 200 MG/10 ML 10 ML UNIT-DOSE CUPS PO PRN (19:51)
[2019-09-11] MEDS ORDERED: P-EPHED 60MG/TRIPROLIDI 2.5MG TABLET PO PRN (19:51)
[2019-09-11] MEDS ORDERED: traZODone HCL 50 MG TABLET (FP) PO SCH (22:00)
[2019-09-11] MEDS ORDERED: traZODone HCL 100 MG TABLET (FP) PO SCH (22:00)
[2019-09-11] MEDS: THIAMINE HCL 100 MG TABLET (FP) PO SCH (22:25)
[2019-09-11] MEDS: BUPRENORPHINE/NALOXONE 8 MG/2 MG FILM PACKET SL SCH (22:26)
[2019-09-11] MEDS: MELATONIN 5 MG TABLETS PO PRN (22:27)
[2019-09-11] MEDS: ACETAMINOPHEN 325 MG TABLET (FP) PO PRN (22:27)
[2019-09-12] MEDS: LEVOTHYROXINE NA 25 MCG TABLET (FP) PO SCH (06:52)
[2019-09-12] MEDS: ACETAMINOPHEN 325 MG TABLET (FP) PO PRN (06:53)
[2019-09-12 09:54] LABS: HEMATOCRIT 36.1 % (32.4-45.2); HEMOGLOBIN 11.8 GM/dL (10.7-15.3); MCH 32.2 pg (25.7-33.7); MCHC 32.8 g/dl (32.0-36.0); MEAN CELL VOLUME 98.4 fl (80-96); MEAN PLT VOLUME 8.2 fl (7.5-11.1); PLATELET COUNT 262 K/MM3 (134-434); RBC 3.67 M/mm3 (3.60-5.2); RDW 12.8 % (11.6-15.6); WHITE BLOOD COUNT 4.4 K/mm3 (4.0-10.0)
[2019-09-12 10:12] LABS: BLOOD UREA NITROGEN 19.8 mg/dL (7-18); CALCIUM 8.2 mg/dL (8.5-10.1); CREATININE 0.7 mg/dL (0.55-1.3); POTASSIUM 4.2 mmol/L (3.5-5.1); TOT PROT 5.8 g/dl (6.4-8.2)
[2019-09-12] MEDS: NICOTINE 14 MG/24 HOURS TOPICAL PATCH TD SCH (10:13)
[2019-09-12] MEDS: BUPRENORPHINE/NALOXONE 8 MG/2 MG FILM PACKET SL SCH ×2 (10:13→21:47)
[2019-09-12] MEDS: PRENATAL VITAMINS W/ FOLIC ACID TABLET (FP) PO SCH (10:14)
[2019-09-12] MEDS: IBUPROFEN 400 MG TABLET (FP) PO PRN ×2 (10:15→19:07)
[2019-09-12 10:44] LABS: EPI CELLS 4.3 /HPF (0-5/HPF); HYALINE CASTS 7 /lpf (0-8); URINE APPEARANCE CLEAR; URINE BACTERIA 129.4 /hpf (NEGATIVE); URINE BILIRUBIN NEGATIVE (NEGATIVE); URINE COLOR YELLOW; URINE GLUCOSE (UA) NEGATIVE (NEGATIVE); URINE KETONE NEGATIVE (NEGATIVE); URINE LEUK ESTERASE 1+ (NEGATIVE); URINE NITRITE NEGATIVE (NEGATIVE); URINE PROTEIN NEGATIVE (NEGATIVE); URINE RBC 7 /hpf (0-4); URINE UROBILINOGEN 0.2 mg/dL (0.2-1.0); URINE WBC 12 /hpf (0-5)
[2019-09-12 10:45] LABS: BILIRUBIN,TOTAL 0.2 mg/dL (0.2-1)
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
[2019-09-12] MEDS: NICOTINE POLACRILEX 2 MG GUM BC PRN (13:49)
[2019-09-12] MEDS: THIAMINE HCL 100 MG TABLET (FP) PO SCH (21:44)
[2019-09-12] MEDS: traZODone HCL 50 MG TABLET (FP) PO SCH (21:46)
--- NOTE | 2019-09-12 23:25 | EKG ---
Test Reason : Blood Pressure : / mmHG Vent. Rate : 061 BPM Atrial Rate : 061 BPM P-R Int : 134 ms QRS Dur : 092 ms QT Int : 462 ms P-R-T Axes : 061 066 055 degrees QTc Int : 465 ms NORMAL SINUS RHYTHM NORMAL ECG WHEN COMPARED WITH ECG OF 04-DEC-2016 05:50, NO SIGNIFICANT CHANGE WAS FOUND Confirmed by HEATHER RIVERO MD ([id number]) on 09/12/2019 11:25:02 PM Referred By: Confirmed By:HEATHER RIVERO MD
[2019-09-13] MEDS: LEVOTHYROXINE NA 25 MCG TABLET (FP) PO SCH (06:42)
[2019-09-13] MEDS: IBUPROFEN 400 MG TABLET (FP) PO PRN (06:44)
[2019-09-13] MEDS: BUPRENORPHINE/NALOXONE 8 MG/2 MG FILM PACKET SL SCH ×2 (10:06→21:39)
[2019-09-13] MEDS: NICOTINE 14 MG/24 HOURS TOPICAL PATCH TD SCH (10:06)
[2019-09-13] MEDS: PRENATAL VITAMINS W/ FOLIC ACID TABLET (FP) PO SCH (10:06)
[2019-09-13] MEDS: NICOTINE POLACRILEX 2 MG GUM BC PRN (12:52)
[2019-09-13] MEDS: THIAMINE HCL 100 MG TABLET (FP) PO SCH (21:39)
[2019-09-13] MEDS: traZODone HCL 50 MG TABLET (FP) PO SCH (21:39)
[2019-09-14] MEDS: LEVOTHYROXINE NA 25 MCG TABLET (FP) PO SCH (06:28)
[2019-09-14] MEDS: IBUPROFEN 400 MG TABLET (FP) PO PRN (06:29)
[2019-09-14] MEDS: PRENATAL VITAMINS W/ FOLIC ACID TABLET (FP) PO SCH (10:00)
[2019-09-14] MEDS: NICOTINE 14 MG/24 HOURS TOPICAL PATCH TD SCH (10:00)
[2019-09-14] MEDS: BUPRENORPHINE/NALOXONE 8 MG/2 MG FILM PACKET SL SCH ×2 (10:01→21:23)
--- NOTE | 2019-09-14 12:41 | PN ---
[facility] Progress Note Note: Pt is a 34 y/o female with a hx of SUDE-Heroin,alcohol and crack/cocaine admitted to rehab on 09/11/19 through [facility] after detox treatment at [facility]. pt has a PMHx of Hypothyroidism(on synthroid). Psych Hx of schizoaffective disorder(on Trazodone). pt reports she is currently on Suboxone 8mg/2mg sl twice a day with her PCP, Dr. Amos Cerda at [address] [place] [address]. Pt reports has been seen by psych . Vital Signs - 24 hr 09/14/19 09/14/19 09/14/19 00:30 03:30 07:07 Temperature 98.2 F Pulse Rate 60 Respiratory 18 18 18 Rate Blood Pressure 101/68 Laboratory Tests 09/11/19 09/12/19 09/12/19 19:30 07:20 07:20 WBC 4.4 RBC 3.67 Hgb 11.8 Hct 36.1 D MCV 98.4 H MCH 32.2 MCHC 32.8 RDW 12.8 Plt Count 262 MPV 8.2 Sodium 140 Potassium 4.2 Chloride 108 H Carbon Dioxide 28 Anion Gap 4 L BUN 19.8 H Creatinine 0.7 Est GFR (CKD-EPI)AfAm 131.02 Est GFR (CKD-EPI)NonAf 113.04 Random Glucose 89 Calcium 8.2 L Total Bilirubin 0.2 AST 13 L ALT 16 Alkaline Phosphatase 61 Total Protein 5.8 L Albumin 3.0 L Urine Color Urine Appearance Urine pH Ur Specific [place] Urine Protein Urine Glucose (UA) Urine Ketones Urine Blood Urine Nitrite Urine Bilirubin Urine Urobilinogen Ur Leukocyte Esterase Urine WBC (Auto) Urine RBC (Auto) Urine Casts (Auto) U Epithel Cells (Auto) Urine Bacteria (Auto) POC Urine HCG, Qual Negative RPR Titer 09/12/19 09/12/19 07:20 08:50 WBC RBC Hgb Hct MCV MCH MCHC RDW Plt Count MPV Sodium Potassium Chloride Carbon Dioxide Anion Gap BUN Creatinine Est GFR (CKD-EPI)AfAm Est GFR (CKD-EPI)NonAf Random Glucose Calcium Total Bilirubin AST ALT Alkaline Phosphatase Total Protein Albumin Urine Color Yellow Urine Appearance Clear Urine pH 6.0 Ur Specific [place] 1.019 Urine Protein Negative Urine Glucose (UA) Negative Urine Ketones Negative Urine Blood 3+ H Urine Nitrite Negative Urine Bilirubin Negative Urine Urobilinogen 0.2 Ur Leukocyte Esterase 1+ H Urine WBC (Auto) 12 Urine RBC (Auto) 7 Urine Casts (Auto) 7 U Epithel Cells (Auto) 4.3 Urine Bacteria (Auto) 129.4 POC Urine HCG, Qual RPR Titer Nonreactive Labs noted. UA noted and asymptomatic(pt reports on her period started 09/11/19) Alert o x 3,denies s/h/i nad oob ambulating with steady gait A/P new rehab pt Maintain safety Labs reviewed. D/w pt will repeat UA in a few days after monthly period clears.
[2019-09-14] MEDS ORDERED: COLLOIDAL OATMEAL 1 BAR EACH TP PRN (12:46)
[2019-09-14] MEDS: SODIUM CHLORIDE NASAL SPRAY 44 ML BOTTLE NS PRN ×2 (13:32→21:24)
[2019-09-14] MEDS: traZODone HCL 50 MG TABLET (FP) PO SCH (21:23)
[2019-09-14] MEDS: MAG HYDROX/AL HYDROX/SIMETH 30 ML UNIT-DOSE CUP PO PRN (21:23)
[2019-09-14] MEDS ORDERED: PT OWN MED DRAWER 7, Y5N ONE (21:23)
[2019-09-14] MEDS: THIAMINE HCL 100 MG TABLET (FP) PO SCH (21:24)
[2019-09-15] MEDS ORDERED: PT OWN MED DRAWER 7, Y5N ONE ×3 (06:29→14:33)
[2019-09-15] MEDS: SODIUM CHLORIDE NASAL SPRAY 44 ML BOTTLE NS PRN ×2 (06:29→14:35)
[2019-09-15] MEDS: LEVOTHYROXINE NA 25 MCG TABLET (FP) PO SCH (06:30)
[2019-09-15] MEDS: IBUPROFEN 400 MG TABLET (FP) PO PRN ×2 (06:30→21:03)
[2019-09-15] MEDS: BUPRENORPHINE/NALOXONE 8 MG/2 MG FILM PACKET SL SCH ×2 (09:52→21:02)
[2019-09-15] MEDS: NICOTINE 14 MG/24 HOURS TOPICAL PATCH TD SCH (09:52)
[2019-09-15] MEDS: PRENATAL VITAMINS W/ FOLIC ACID TABLET (FP) PO SCH (09:52)
[2019-09-15] MEDS: NICOTINE POLACRILEX 2 MG GUM BC PRN (09:53)
[2019-09-15] MEDS: THIAMINE HCL 100 MG TABLET (FP) PO SCH (21:01)
[2019-09-15] MEDS: traZODone HCL 50 MG TABLET (FP) PO SCH (21:01)
[2019-09-15] MEDS: MELATONIN 5 MG TABLETS PO PRN (21:02)
[2019-09-16] MEDS: SODIUM CHLORIDE NASAL SPRAY 44 ML BOTTLE NS PRN ×2 (06:36→21:46)
[2019-09-16] MEDS: LEVOTHYROXINE NA 25 MCG TABLET (FP) PO SCH (06:36)
[2019-09-16] MEDS: IBUPROFEN 400 MG TABLET (FP) PO PRN ×2 (06:36→19:01)
[2019-09-16] MEDS: PRENATAL VITAMINS W/ FOLIC ACID TABLET (FP) PO SCH (10:06)
[2019-09-16] MEDS: NICOTINE 14 MG/24 HOURS TOPICAL PATCH TD SCH (10:06)
[2019-09-16] MEDS: BUPRENORPHINE/NALOXONE 8 MG/2 MG FILM PACKET SL SCH ×2 (10:07→21:47)
[2019-09-16] MEDS: THIAMINE HCL 100 MG TABLET (FP) PO SCH (21:45)
[2019-09-16] MEDS: traZODone HCL 50 MG TABLET (FP) PO SCH (21:45)
[2019-09-17] MEDS: IBUPROFEN 400 MG TABLET (FP) PO PRN ×2 (06:40→15:30)
[2019-09-17] MEDS: LEVOTHYROXINE NA 25 MCG TABLET (FP) PO SCH (06:40)
[2019-09-17] MEDS: PRENATAL VITAMINS W/ FOLIC ACID TABLET (FP) PO SCH (09:53)
[2019-09-17] MEDS: NICOTINE 14 MG/24 HOURS TOPICAL PATCH TD SCH (09:53)
[2019-09-17] MEDS: BUPRENORPHINE/NALOXONE 8 MG/2 MG FILM PACKET SL SCH ×2 (09:54→21:44)
[2019-09-17] MEDS: SODIUM CHLORIDE NASAL SPRAY 44 ML BOTTLE NS PRN ×2 (09:54→21:44)
[2019-09-17] MEDS: NICOTINE POLACRILEX 2 MG GUM BC PRN (09:55)
[2019-09-17] MEDS: MAG HYDROX/AL HYDROX/SIMETH 30 ML UNIT-DOSE CUP PO PRN (15:30)
[2019-09-17] MEDS: THIAMINE HCL 100 MG TABLET (FP) PO SCH (21:44)
[2019-09-17] MEDS: traZODone HCL 50 MG TABLET (FP) PO SCH (21:44)
[2019-09-18] MEDS: LEVOTHYROXINE NA 25 MCG TABLET (FP) PO SCH (06:43)
[2019-09-18] MEDS: IBUPROFEN 400 MG TABLET (FP) PO PRN ×2 (06:43→21:26)
[2019-09-18] MEDS: NICOTINE 14 MG/24 HOURS TOPICAL PATCH TD SCH (10:01)
[2019-09-18] MEDS: PRENATAL VITAMINS W/ FOLIC ACID TABLET (FP) PO SCH (10:01)
[2019-09-18] MEDS: BUPRENORPHINE/NALOXONE 8 MG/2 MG FILM PACKET SL SCH ×2 (10:01→22:27)
[2019-09-18] MEDS ORDERED: PT OWN MED DRAWER 7, Y5N ONE (10:02)
[2019-09-18] MEDS: SODIUM CHLORIDE NASAL SPRAY 44 ML BOTTLE NS PRN ×2 (10:02→21:27)
[2019-09-18] MEDS: ACETAMINOPHEN 325 MG TABLET (FP) PO PRN (12:23)
[2019-09-18] MEDS: THIAMINE HCL 100 MG TABLET (FP) PO SCH (21:26)
[2019-09-18] MEDS: traZODone HCL 50 MG TABLET (FP) PO SCH (21:26)
[2019-09-19] MEDS: LEVOTHYROXINE NA 25 MCG TABLET (FP) PO SCH (06:38)
[2019-09-19] MEDS: IBUPROFEN 400 MG TABLET (FP) PO PRN ×3 (06:38→21:06)
[2019-09-19] MEDS: NICOTINE 14 MG/24 HOURS TOPICAL PATCH TD SCH (09:41)
[2019-09-19] MEDS: BUPRENORPHINE/NALOXONE 8 MG/2 MG FILM PACKET SL SCH ×2 (09:42→21:07)
[2019-09-19] MEDS: PRENATAL VITAMINS W/ FOLIC ACID TABLET (FP) PO SCH (09:42)
[2019-09-19] MEDS: SODIUM CHLORIDE NASAL SPRAY 44 ML BOTTLE NS PRN (21:06)
[2019-09-19] MEDS: MELATONIN 5 MG TABLETS PO PRN (21:06)
[2019-09-19] MEDS: traZODone HCL 50 MG TABLET (FP) PO SCH (21:07)
[2019-09-19] MEDS: THIAMINE HCL 100 MG TABLET (FP) PO SCH (21:12)
[2019-09-20] MEDS: LEVOTHYROXINE NA 25 MCG TABLET (FP) PO SCH (06:41)
[2019-09-20] MEDS: IBUPROFEN 400 MG TABLET (FP) PO PRN ×2 (06:41→21:08)
[2019-09-20] MEDS: PRENATAL VITAMINS W/ FOLIC ACID TABLET (FP) PO SCH (09:43)
[2019-09-20] MEDS: BUPRENORPHINE/NALOXONE 8 MG/2 MG FILM PACKET SL SCH ×2 (09:43→21:09)
[2019-09-20] MEDS: NICOTINE 14 MG/24 HOURS TOPICAL PATCH TD SCH (09:43)
[2019-09-20] MEDS: traZODone HCL 50 MG TABLET (FP) PO SCH (21:08)
[2019-09-20] MEDS: THIAMINE HCL 100 MG TABLET (FP) PO SCH (21:08)
[2019-09-20] MEDS: SODIUM CHLORIDE NASAL SPRAY 44 ML BOTTLE NS PRN (21:08)
[2019-09-20] MEDS: MELATONIN 5 MG TABLETS PO PRN (21:09)
[2019-09-21] MEDS: IBUPROFEN 400 MG TABLET (FP) PO PRN ×2 (06:45→21:50)
[2019-09-21] MEDS: LEVOTHYROXINE NA 25 MCG TABLET (FP) PO SCH (06:45)
[2019-09-21] MEDS: BUPRENORPHINE/NALOXONE 8 MG/2 MG FILM PACKET SL SCH ×2 (09:47→21:50)
[2019-09-21] MEDS: PRENATAL VITAMINS W/ FOLIC ACID TABLET (FP) PO SCH (09:47)
[2019-09-21] MEDS: NICOTINE 14 MG/24 HOURS TOPICAL PATCH TD SCH (09:47)
[2019-09-21] MEDS: THIAMINE HCL 100 MG TABLET (FP) PO SCH (21:50)
[2019-09-21] MEDS: SODIUM CHLORIDE NASAL SPRAY 44 ML BOTTLE NS PRN (21:51)
[2019-09-21] MEDS: traZODone HCL 50 MG TABLET (FP) PO SCH (21:51)
[2019-09-22] MEDS: IBUPROFEN 400 MG TABLET (FP) PO PRN ×2 (06:44→15:50)
[2019-09-22] MEDS: LEVOTHYROXINE NA 25 MCG TABLET (FP) PO SCH (06:44)
[2019-09-22] MEDS: BUPRENORPHINE/NALOXONE 8 MG/2 MG FILM PACKET SL SCH ×2 (09:49→21:34)
[2019-09-22] MEDS: NICOTINE 14 MG/24 HOURS TOPICAL PATCH TD SCH (09:49)
[2019-09-22] MEDS: PRENATAL VITAMINS W/ FOLIC ACID TABLET (FP) PO SCH (09:49)
[2019-09-22] MEDS: MAG HYDROX/AL HYDROX/SIMETH 30 ML UNIT-DOSE CUP PO PRN (15:50)
[2019-09-22] MEDS: MELATONIN 5 MG TABLETS PO PRN (21:34)
[2019-09-22] MEDS: THIAMINE HCL 100 MG TABLET (FP) PO SCH (21:34)
[2019-09-22] MEDS: ACETAMINOPHEN 325 MG TABLET (FP) PO PRN (21:35)
[2019-09-22] MEDS: SODIUM CHLORIDE NASAL SPRAY 44 ML BOTTLE NS PRN (21:35)
[2019-09-22] MEDS: traZODone HCL 50 MG TABLET (FP) PO SCH (21:36)
[2019-09-23] MEDS: LEVOTHYROXINE NA 25 MCG TABLET (FP) PO SCH (06:37)
[2019-09-23] MEDS: IBUPROFEN 400 MG TABLET (FP) PO PRN ×2 (06:37→19:05)
[2019-09-23] MEDS: NICOTINE 14 MG/24 HOURS TOPICAL PATCH TD SCH (09:55)
[2019-09-23] MEDS: BUPRENORPHINE/NALOXONE 8 MG/2 MG FILM PACKET SL SCH ×2 (09:55→21:24)
[2019-09-23] MEDS: PRENATAL VITAMINS W/ FOLIC ACID TABLET (FP) PO SCH (09:55)
[2019-09-23] MEDS: ACETAMINOPHEN 325 MG TABLET (FP) PO PRN (09:56)
[2019-09-23] MEDS: THIAMINE HCL 100 MG TABLET (FP) PO SCH (21:23)
[2019-09-23] MEDS: traZODone HCL 50 MG TABLET (FP) PO SCH (21:24)
[2019-09-23] MEDS: MELATONIN 5 MG TABLETS PO PRN (21:24)
[2019-09-23] MEDS: SODIUM CHLORIDE NASAL SPRAY 44 ML BOTTLE NS PRN (21:25)
[2019-09-24] MEDS: LEVOTHYROXINE NA 25 MCG TABLET (FP) PO SCH (06:32)
[2019-09-24] MEDS: IBUPROFEN 400 MG TABLET (FP) PO PRN ×2 (06:32→17:32)
[2019-09-24] MEDS ORDERED: hydrOXYzine PAMOATE 50 MG CAPSULE (FP) PO PRN (09:06)
[2019-09-24] MEDS: PRENATAL VITAMINS W/ FOLIC ACID TABLET (FP) PO SCH (09:44)
[2019-09-24] MEDS: NICOTINE 14 MG/24 HOURS TOPICAL PATCH TD SCH (09:44)
[2019-09-24] MEDS: ACETAMINOPHEN 325 MG TABLET (FP) PO PRN ×2 (09:44→21:45)
[2019-09-24] MEDS: BUPRENORPHINE/NALOXONE 8 MG/2 MG FILM PACKET SL SCH ×2 (09:44→21:46)
[2019-09-24] MEDS: SODIUM CHLORIDE NASAL SPRAY 44 ML BOTTLE NS PRN (21:44)
[2019-09-24] MEDS ORDERED: PT OWN MED DRAWER 7, Y5N ONE (21:45)
[2019-09-24] MEDS: THIAMINE HCL 100 MG TABLET (FP) PO SCH (21:46)
[2019-09-24] MEDS: MELATONIN 5 MG TABLETS PO PRN (21:46)
[2019-09-24] MEDS: traZODone HCL 50 MG TABLET (FP) PO SCH (21:46)
[2019-09-25] MEDS: LEVOTHYROXINE NA 25 MCG TABLET (FP) PO SCH (06:44)
[2019-09-25] MEDS: IBUPROFEN 400 MG TABLET (FP) PO PRN ×2 (06:44→21:34)
[2019-09-25] MEDS ORDERED: BUPRENORPHINE/NALOXONE 8 MG/2 MG FILM PACKET SL ONE (10:00)
[2019-09-25] MEDS: NICOTINE 14 MG/24 HOURS TOPICAL PATCH TD SCH (10:03)
[2019-09-25] MEDS: PRENATAL VITAMINS W/ FOLIC ACID TABLET (FP) PO SCH (10:04)
--- NOTE | 2019-09-25 14:49 | PN ---
[facility] Progress Note Note: Patient complains of anxiety and requests Vistaril 50 mg po Q 4hrs prn. EKG noted as normal
[2019-09-25] MEDS: hydrOXYzine PAMOATE 50 MG CAPSULE (FP) PO PRN (15:37)
[2019-09-25] MEDS ORDERED: PT OWN MED DRAWER 7, Y5N ONE (21:33)
[2019-09-25] MEDS: THIAMINE HCL 100 MG TABLET (FP) PO SCH (21:34)
[2019-09-25] MEDS: MELATONIN 5 MG TABLETS PO PRN (21:34)
[2019-09-25] MEDS: BUPRENORPHINE/NALOXONE 8 MG/2 MG FILM PACKET SL SCH (21:34)
[2019-09-25] MEDS: traZODone HCL 50 MG TABLET (FP) PO SCH (21:34)
[2019-09-25] MEDS: SODIUM CHLORIDE NASAL SPRAY 44 ML BOTTLE NS PRN (21:35)
[2019-09-26] MEDS: LEVOTHYROXINE NA 25 MCG TABLET (FP) PO SCH (06:49)
[2019-09-26] MEDS: IBUPROFEN 400 MG TABLET (FP) PO PRN ×2 (06:51→16:50)
[2019-09-26] MEDS: hydrOXYzine PAMOATE 50 MG CAPSULE (FP) PO PRN (10:15)
[2019-09-26] MEDS: BUPRENORPHINE/NALOXONE 8 MG/2 MG FILM PACKET SL SCH ×2 (10:15→21:09)
[2019-09-26] MEDS: NICOTINE 14 MG/24 HOURS TOPICAL PATCH TD SCH (10:15)
[2019-09-26] MEDS: PRENATAL VITAMINS W/ FOLIC ACID TABLET (FP) PO SCH (10:15)
[2019-09-26] MEDS ORDERED: PT OWN MED DRAWER 7, Y5N ONE (21:07)
[2019-09-26] MEDS: MELATONIN 5 MG TABLETS PO PRN (21:09)
[2019-09-26] MEDS: traZODone HCL 50 MG TABLET (FP) PO SCH (21:09)
[2019-09-26] MEDS: THIAMINE HCL 100 MG TABLET (FP) PO SCH (21:09)
[2019-09-26] MEDS: SODIUM CHLORIDE NASAL SPRAY 44 ML BOTTLE NS PRN (21:10)
[2019-09-27] MEDS: LEVOTHYROXINE NA 25 MCG TABLET (FP) PO SCH (06:48)
[2019-09-27] MEDS: IBUPROFEN 400 MG TABLET (FP) PO PRN ×3 (06:49→21:23)
[2019-09-27] MEDS: PRENATAL VITAMINS W/ FOLIC ACID TABLET (FP) PO SCH (10:02)
[2019-09-27] MEDS: BUPRENORPHINE/NALOXONE 8 MG/2 MG FILM PACKET SL SCH ×2 (10:02→21:23)
[2019-09-27] MEDS: NICOTINE 14 MG/24 HOURS TOPICAL PATCH TD SCH (10:02)
[2019-09-27] MEDS: hydrOXYzine PAMOATE 50 MG CAPSULE (FP) PO PRN (12:32)
[2019-09-27] MEDS ORDERED: PT OWN MED DRAWER 7, Y5N ONE (21:22)
[2019-09-27] MEDS: SODIUM CHLORIDE NASAL SPRAY 44 ML BOTTLE NS PRN (21:22)
[2019-09-27] MEDS: MELATONIN 5 MG TABLETS PO PRN (21:23)
[2019-09-27] MEDS: traZODone HCL 50 MG TABLET (FP) PO SCH (21:23)
[2019-09-27] MEDS: THIAMINE HCL 100 MG TABLET (FP) PO SCH (21:25)
[2019-09-28] MEDS: IBUPROFEN 400 MG TABLET (FP) PO PRN ×3 (06:38→21:12)
[2019-09-28] MEDS: LEVOTHYROXINE NA 25 MCG TABLET (FP) PO SCH (06:38)
[2019-09-28] MEDS: PRENATAL VITAMINS W/ FOLIC ACID TABLET (FP) PO SCH (09:52)
[2019-09-28] MEDS: BUPRENORPHINE/NALOXONE 8 MG/2 MG FILM PACKET SL SCH ×2 (09:52→21:13)
[2019-09-28] MEDS: NICOTINE 14 MG/24 HOURS TOPICAL PATCH TD SCH (09:52)
[2019-09-28] MEDS: THIAMINE HCL 100 MG TABLET (FP) PO SCH (21:13)
[2019-09-28] MEDS: MELATONIN 5 MG TABLETS PO PRN (21:13)
[2019-09-28] MEDS: traZODone HCL 50 MG TABLET (FP) PO SCH (21:13)
[2019-09-28] MEDS: SODIUM CHLORIDE NASAL SPRAY 44 ML BOTTLE NS PRN (21:14)
[2019-09-29] MEDS: IBUPROFEN 400 MG TABLET (FP) PO PRN ×3 (06:23→22:31)
[2019-09-29] MEDS: LEVOTHYROXINE NA 25 MCG TABLET (FP) PO SCH (06:24)
[2019-09-29] MEDS: NICOTINE 14 MG/24 HOURS TOPICAL PATCH TD SCH (09:45)
[2019-09-29] MEDS: BUPRENORPHINE/NALOXONE 8 MG/2 MG FILM PACKET SL SCH ×2 (09:46→22:31)
[2019-09-29] MEDS: PRENATAL VITAMINS W/ FOLIC ACID TABLET (FP) PO SCH (09:46)
[2019-09-29] MEDS: MELATONIN 5 MG TABLETS PO PRN (22:28)
[2019-09-29] MEDS: traZODone HCL 50 MG TABLET (FP) PO SCH (22:31)
[2019-09-29] MEDS: THIAMINE HCL 100 MG TABLET (FP) PO SCH (22:33)
[2019-09-29] MEDS: SODIUM CHLORIDE NASAL SPRAY 44 ML BOTTLE NS PRN (22:34)
[2019-09-30] MEDS: IBUPROFEN 400 MG TABLET (FP) PO PRN ×2 (06:43→21:25)
[2019-09-30] MEDS: LEVOTHYROXINE NA 25 MCG TABLET (FP) PO SCH (06:43)
[2019-09-30] MEDS: NICOTINE 14 MG/24 HOURS TOPICAL PATCH TD SCH (10:00)
[2019-09-30] MEDS: BUPRENORPHINE/NALOXONE 8 MG/2 MG FILM PACKET SL SCH ×2 (10:00→21:24)
[2019-09-30] MEDS: PRENATAL VITAMINS W/ FOLIC ACID TABLET (FP) PO SCH (10:00)
[2019-09-30] MEDS: hydrOXYzine PAMOATE 50 MG CAPSULE (FP) PO PRN (13:58)
[2019-09-30] MEDS: traZODone HCL 50 MG TABLET (FP) PO SCH (21:24)
[2019-09-30] MEDS: SODIUM CHLORIDE NASAL SPRAY 44 ML BOTTLE NS PRN (21:24)
[2019-09-30] MEDS: MELATONIN 5 MG TABLETS PO PRN (21:25)
[2019-09-30] MEDS: THIAMINE HCL 100 MG TABLET (FP) PO SCH (21:27)
[2019-10-01] MEDS: LEVOTHYROXINE NA 25 MCG TABLET (FP) PO SCH (06:29)
[2019-10-01] MEDS: IBUPROFEN 400 MG TABLET (FP) PO PRN ×2 (06:29→21:46)
[2019-10-01] MEDS: PRENATAL VITAMINS W/ FOLIC ACID TABLET (FP) PO SCH (09:47)
[2019-10-01] MEDS: BUPRENORPHINE/NALOXONE 8 MG/2 MG FILM PACKET SL SCH ×2 (09:47→21:46)
[2019-10-01] MEDS: NICOTINE 14 MG/24 HOURS TOPICAL PATCH TD SCH (09:47)
[2019-10-01] MEDS: hydrOXYzine PAMOATE 50 MG CAPSULE (FP) PO PRN (09:48)
[2019-10-01] MEDS: traZODone HCL 50 MG TABLET (FP) PO SCH (21:46)
[2019-10-01] MEDS: MELATONIN 5 MG TABLETS PO PRN (21:46)
[2019-10-01] MEDS: THIAMINE HCL 100 MG TABLET (FP) PO SCH (21:46)
[2019-10-01] MEDS: SODIUM CHLORIDE NASAL SPRAY 44 ML BOTTLE NS PRN (21:47)
[2019-10-02] MEDS: IBUPROFEN 400 MG TABLET (FP) PO PRN ×2 (06:36→21:27)
[2019-10-02] MEDS: LEVOTHYROXINE NA 25 MCG TABLET (FP) PO SCH (06:36)
--- NOTE | 2019-10-02 08:35 | PN ---
S Progress Note Note: Suboxone 8 mg/2mg sl BID renewed today. Pt seen this morning doing her laundry. Vital Signs - 24 hr 10/02/19 10/02/19 10/02/19 00:30 03:30 07:11 Temperature 98.1 F Pulse Rate 77 Respiratory 18 18 18 Rate Blood Pressure 94/65 Alert o x 3 nad oob ambulating with steady gait. A/P Suboxone MAT Maintain safety Reminded pt to Increase po fluids.
[2019-10-02] MEDS: PRENATAL VITAMINS W/ FOLIC ACID TABLET (FP) PO SCH (09:51)
[2019-10-02] MEDS: BUPRENORPHINE/NALOXONE 8 MG/2 MG FILM PACKET SL SCH ×2 (09:51→21:27)
[2019-10-02] MEDS: NICOTINE 14 MG/24 HOURS TOPICAL PATCH TD SCH (09:51)
[2019-10-02] MEDS: THIAMINE HCL 100 MG TABLET (FP) PO SCH (21:27)
[2019-10-02] MEDS: hydrOXYzine PAMOATE 50 MG CAPSULE (FP) PO PRN (21:27)
[2019-10-02] MEDS: traZODone HCL 50 MG TABLET (FP) PO SCH (21:27)
[2019-10-02] MEDS: SODIUM CHLORIDE NASAL SPRAY 44 ML BOTTLE NS PRN (21:28)
[2019-10-02] MEDS: MELATONIN 5 MG TABLETS PO PRN (21:29)
[2019-10-03] MEDS: LEVOTHYROXINE NA 25 MCG TABLET (FP) PO SCH (06:21)
[2019-10-03] MEDS: IBUPROFEN 400 MG TABLET (FP) PO PRN ×2 (06:21→21:21)
[2019-10-03] MEDS: hydrOXYzine PAMOATE 50 MG CAPSULE (FP) PO PRN ×2 (09:52→21:21)
[2019-10-03] MEDS: PRENATAL VITAMINS W/ FOLIC ACID TABLET (FP) PO SCH (09:52)
[2019-10-03] MEDS: NICOTINE 14 MG/24 HOURS TOPICAL PATCH TD SCH (09:53)
[2019-10-03] MEDS: BUPRENORPHINE/NALOXONE 8 MG/2 MG FILM PACKET SL SCH ×2 (09:53→21:20)
[2019-10-03] MEDS: traZODone HCL 50 MG TABLET (FP) PO SCH (21:20)
[2019-10-03] MEDS ORDERED: PT OWN MED DRAWER 7, Y5N ONE (21:20)
[2019-10-03] MEDS: THIAMINE HCL 100 MG TABLET (FP) PO SCH (21:21)
[2019-10-03] MEDS: MELATONIN 5 MG TABLETS PO PRN (21:21)
[2019-10-04] MEDS: IBUPROFEN 400 MG TABLET (FP) PO PRN ×2 (06:31→21:17)
[2019-10-04] MEDS: LEVOTHYROXINE NA 25 MCG TABLET (FP) PO SCH (06:31)
[2019-10-04] MEDS: hydrOXYzine PAMOATE 50 MG CAPSULE (FP) PO PRN ×2 (09:33→21:18)
[2019-10-04] MEDS: BUPRENORPHINE/NALOXONE 8 MG/2 MG FILM PACKET SL SCH ×2 (09:33→21:16)
[2019-10-04] MEDS: PRENATAL VITAMINS W/ FOLIC ACID TABLET (FP) PO SCH (09:34)
[2019-10-04] MEDS: NICOTINE 14 MG/24 HOURS TOPICAL PATCH TD SCH (09:34)
[2019-10-04] MEDS: SODIUM CHLORIDE NASAL SPRAY 44 ML BOTTLE NS PRN (21:15)
[2019-10-04] MEDS: THIAMINE HCL 100 MG TABLET (FP) PO SCH (21:16)
[2019-10-04] MEDS: MELATONIN 5 MG TABLETS PO PRN (21:16)
[2019-10-04] MEDS: traZODone HCL 50 MG TABLET (FP) PO SCH (21:16)
[2019-10-05] MEDS: LEVOTHYROXINE NA 25 MCG TABLET (FP) PO SCH (06:45)
[2019-10-05] MEDS: IBUPROFEN 400 MG TABLET (FP) PO PRN ×3 (06:45→21:26)
[2019-10-05] MEDS: BUPRENORPHINE/NALOXONE 8 MG/2 MG FILM PACKET SL SCH ×2 (09:48→21:26)
[2019-10-05] MEDS: PRENATAL VITAMINS W/ FOLIC ACID TABLET (FP) PO SCH (09:48)
[2019-10-05] MEDS: NICOTINE 14 MG/24 HOURS TOPICAL PATCH TD SCH (09:48)
[2019-10-05] MEDS: hydrOXYzine PAMOATE 50 MG CAPSULE (FP) PO PRN ×2 (09:49→21:26)
[2019-10-05] MEDS ORDERED: PT OWN MED DRAWER 7, Y5N ONE (14:24)
[2019-10-05] MEDS: MAG HYDROX/AL HYDROX/SIMETH 30 ML UNIT-DOSE CUP PO PRN (14:26)
[2019-10-05] MEDS: SODIUM CHLORIDE NASAL SPRAY 44 ML BOTTLE NS PRN ×2 (14:26→21:26)
[2019-10-05] MEDS: THIAMINE HCL 100 MG TABLET (FP) PO SCH (21:25)
[2019-10-05] MEDS: MELATONIN 5 MG TABLETS PO PRN (21:25)
[2019-10-05] MEDS: traZODone HCL 50 MG TABLET (FP) PO SCH (21:25)
[2019-10-06] MEDS: LEVOTHYROXINE NA 25 MCG TABLET (FP) PO SCH (06:17)
[2019-10-06] MEDS: IBUPROFEN 400 MG TABLET (FP) PO PRN ×2 (06:18→21:08)
[2019-10-06] MEDS: hydrOXYzine PAMOATE 50 MG CAPSULE (FP) PO PRN ×2 (09:50→21:08)
[2019-10-06] MEDS: PRENATAL VITAMINS W/ FOLIC ACID TABLET (FP) PO SCH (09:50)
[2019-10-06] MEDS: BUPRENORPHINE/NALOXONE 8 MG/2 MG FILM PACKET SL SCH ×2 (09:50→21:10)
[2019-10-06] MEDS: NICOTINE 14 MG/24 HOURS TOPICAL PATCH TD SCH (09:50)
[2019-10-06] MEDS: SODIUM CHLORIDE NASAL SPRAY 44 ML BOTTLE NS PRN ×2 (09:50→21:08)
[2019-10-06] MEDS ORDERED: PT OWN MED DRAWER 7, Y5N ONE (10:38)
[2019-10-06] MEDS: traZODone HCL 50 MG TABLET (FP) PO SCH (21:08)
[2019-10-06] MEDS: THIAMINE HCL 100 MG TABLET (FP) PO SCH (21:08)
[2019-10-07] MEDS: IBUPROFEN 400 MG TABLET (FP) PO PRN ×2 (06:27→21:38)
[2019-10-07] MEDS: LEVOTHYROXINE NA 25 MCG TABLET (FP) PO SCH (06:27)
[2019-10-07] MEDS: PRENATAL VITAMINS W/ FOLIC ACID TABLET (FP) PO SCH (10:40)
[2019-10-07] MEDS: hydrOXYzine PAMOATE 50 MG CAPSULE (FP) PO PRN (10:40)
[2019-10-07] MEDS: NICOTINE 14 MG/24 HOURS TOPICAL PATCH TD SCH (10:40)
[2019-10-07] MEDS: BUPRENORPHINE/NALOXONE 8 MG/2 MG FILM PACKET SL SCH ×2 (10:40→21:41)
[2019-10-07] MEDS: traZODone HCL 50 MG TABLET (FP) PO SCH (21:38)
[2019-10-07] MEDS: THIAMINE HCL 100 MG TABLET (FP) PO SCH (21:38)
[2019-10-07] MEDS: MELATONIN 5 MG TABLETS PO PRN (21:39)
[2019-10-07] MEDS: SODIUM CHLORIDE NASAL SPRAY 44 ML BOTTLE NS PRN (21:40)
[2019-10-08] MEDS: LEVOTHYROXINE NA 25 MCG TABLET (FP) PO SCH (06:38)
[2019-10-08] MEDS: IBUPROFEN 400 MG TABLET (FP) PO PRN ×2 (06:38→21:53)
[2019-10-08] MEDS: hydrOXYzine PAMOATE 50 MG CAPSULE (FP) PO PRN ×2 (09:48→14:51)
[2019-10-08] MEDS: BUPRENORPHINE/NALOXONE 8 MG/2 MG FILM PACKET SL SCH ×2 (09:49→21:53)
[2019-10-08] MEDS: PRENATAL VITAMINS W/ FOLIC ACID TABLET (FP) PO SCH (09:49)
[2019-10-08] MEDS: NICOTINE 14 MG/24 HOURS TOPICAL PATCH TD SCH (09:49)
--- NOTE | 2019-10-08 12:09 | PN ---
[facility] Progress Note Note: Patient is scheduled for discharge tomorrow. Script for 30 days supply of Trazadone 150 mg/hs will be electronically transmittedd to [facility] at [address] [place] [address]
--- NOTE | 2019-10-08 14:30 | DS ---
[facility] Rehab Discharge Summary - [facility] Rehab Discharge Summary Admission Date: 09/11/19 Discharge Date: 10/09/19 - History Present History: Alcohol dependence Additional Comments: Pt is a 34 y/o female with a hx of GLORIA admitted to rehab and scheduled for discharge on 10/09/19. Pt reports she is currently on Suboxone 8mg/2mg sl twice a day with her PCP, Dr. Amos Cerda at [address] [place] [address]. Pertinent Past History: Asthma Hypothyroidism - Discharge Physical Exam Vital Signs: Vital Signs Temperature 97.8 F 10/08/19 07:06 Pulse Rate 66 10/08/19 07:06 Respiratory Rate 16 10/08/19 07:06 Blood Pressure 95/59 L 10/08/19 07:06 O2 Sat by Pulse Oximetry (%) Alert o x 3,denies s/h/i nad oob ambulating with steady gait cardiac:s1 s2,rrr lungs:cta,sara. abdomen:+bs,soft,nt,nd extremities/skin:no edema;skin intact. Pertinent Admission Physical Exam Findings: Laboratory Tests 09/11/19 09/12/19 09/12/19 19:30 07:20 07:20 WBC 4.4 RBC 3.67 Hgb 11.8 Hct 36.1 D MCV 98.4 H MCH 32.2 MCHC 32.8 RDW 12.8 Plt Count 262 MPV 8.2 Sodium 140 Potassium 4.2 Chloride 108 H Carbon Dioxide 28 Anion Gap 4 L BUN 19.8 H Creatinine 0.7 Est GFR (CKD-EPI)AfAm 131.02 Est GFR (CKD-EPI)NonAf 113.04 Random Glucose 89 Calcium 8.2 L Total Bilirubin 0.2 AST 13 L ALT 16 Alkaline Phosphatase 61 Total Protein 5.8 L Albumin 3.0 L Urine Color Urine Appearance Urine pH Ur Specific [place] Urine Protein Urine Glucose (UA) Urine Ketones Urine Blood Urine Nitrite Urine Bilirubin Urine Urobilinogen Ur Leukocyte Esterase Urine WBC (Auto) Urine RBC (Auto) Urine Casts (Auto) U Epithel Cells (Auto) Urine Bacteria (Auto) POC Urine HCG, Qual Negative RPR Titer 09/12/19 09/12/19 07:20 08:50 WBC RBC Hgb Hct MCV MCH MCHC RDW Plt Count MPV Sodium Potassium Chloride Carbon Dioxide Anion Gap BUN Creatinine Est GFR (CKD-EPI)AfAm Est GFR (CKD-EPI)NonAf Random Glucose Calcium Total Bilirubin AST ALT Alkaline Phosphatase Total Protein Albumin Urine Color Yellow Urine Appearance Clear Urine pH 6.0 Ur Specific [place] 1.019 Urine Protein Negative Urine Glucose (UA) Negative Urine Ketones Negative Urine Blood 3+ H Urine Nitrite Negative Urine Bilirubin Negative Urine Urobilinogen 0.2 Ur Leukocyte Esterase 1+ H Urine WBC (Auto) 12 Urine RBC (Auto) 7 Urine Casts (Auto) 7 U Epithel Cells (Auto) 4.3 Urine Bacteria (Auto) 129.4 POC Urine HCG, Qual RPR Titer Nonreactive - Treatment Discharge Condition: Discharge condition good Hospital Course: Rehabilitated safely and responded well CD aftercare referral accepted. - Medication Discharge Medications: Ambulatory Orders Levothyroxine [Synthroid -] 50 mcg PO DAILY 12/22/15 Albuterol Sulfate Inhaler - [Ventolin HFA Inhaler -] 2 puff IH Q4H PRN #0 inhaler 12/08/16 Buprenorphine/Naloxone [Suboxone 8Mg/2Mg Sl Film -] 1 film SL BID 09/11/19 Buprenorphine/Naloxone [Suboxone 8Mg/2Mg Sl Film -] 1 each SL BID 5 Days #10 packet MDD 2 10/08/19 Trazodone HCl 150 mg PO HS #30 tablet 10/08/19 - Medication-Assisted Treatment (MAT) Medication-Assisted Treatment (MAT): Yes Medication Prescribed: Suboxone - Discharge Instructions Diet, activity, other medical instructions: Diet:Regular Activity: oob ad shana Other medical instructions:follow up with Cd aftercare recommendations as scheduled. Follow up with Primary care provider for medical management 1 week after discharge. 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 (4) Asthma Status: Chronic Qualifiers: Asthma severity: mild intermittent Asthma complication type: uncomplicated (5) History of hypothyroidism Status: Chronic (6) Nicotine dependence Status: Chronic Qualifiers: Nicotine product type: cigarettes Substance use status: uncomplicated Qualified Code(s): F17.210 - Nicotine dependence, cigarettes, uncomplicated (7) Encounter for monitoring Suboxone maintenance therapy Status: Chronic - Follow-up Referral Minutes to complete discharge: 20 - AMA Did Patient Leave Against Medical Advice: No Additional Comments: Pt reports she has own meds and no need for other courtesy RX today. Pt has own Suboxone provider. Courtesy Rx for Suboxone 8mg /2mg sl BID ##10 x 5 days electronically sent to [facility] for pat molded goods spot picker until can see her suboxone provider next week.
[2019-10-08] MEDS ORDERED: PT OWN MED DRAWER 7, Y5N ONE (14:48)
[2019-10-08] MEDS: THIAMINE HCL 100 MG TABLET (FP) PO SCH (21:52)
[2019-10-08] MEDS: traZODone HCL 50 MG TABLET (FP) PO SCH (21:53)
[2019-10-08] MEDS: MELATONIN 5 MG TABLETS PO PRN (21:54)
[2019-10-09] MEDS: LEVOTHYROXINE NA 25 MCG TABLET (FP) PO SCH (06:36)
[2019-10-09] MEDS: IBUPROFEN 400 MG TABLET (FP) PO PRN (06:36)
[2019-10-09 07:10] VITALS: BP 89/58; PULSE 64; TEMP 97.2
[2019-10-09] MEDS: NICOTINE 14 MG/24 HOURS TOPICAL PATCH TD SCH (09:02)
[2019-10-09] MEDS: PRENATAL VITAMINS W/ FOLIC ACID TABLET (FP) PO SCH (09:02)
[2019-10-09] MEDS: BUPRENORPHINE/NALOXONE 8 MG/2 MG FILM PACKET SL SCH (09:02)
[2019-10-09] MEDS: hydrOXYzine PAMOATE 50 MG CAPSULE (FP) PO PRN (09:02)
--- NOTE | 2019-10-09 13:24 | PN ---
S Progress Note Note: Pt was discharged today as scheduled. Vital Signs - 24 hr 10/09/19 10/09/19 10/09/19 00:30 03:30 07:08 Temperature 97.2 F L Pulse Rate 64 Respiratory 18 18 16 Rate Blood Pressure 89/58 L Alert o x 3 nad oob ambulating with steady gait. A/P Medically stable D/C today reminded pt to follow up with aftercare recommendations as well as with her primary care and Suboxone-MAT provider.
== END 2019-10-09 09:15 | disposition home or self-care (01) | DRG 895 ==
LOC: YASAS 16:28 → Y3E 20:07
PROVIDERS: ADMIT Neuromusculoskeletal Medicine & OMM; ATTEND Neuromusculoskeletal Medicine & OMM
PROC: HZ42ZZZ Group Counseling for Substance Abuse Treatment, Cognitive-Behavioral (ICD-10-PCS; principal; 2019-09-11)
DX: F10.20 Alcohol dependence, uncomplicated (principal); F11.20 Opioid dependence, uncomplicated; F13.20 Sedative, hypnotic or anxiolytic dependence, uncomplicated; F17.210 Nicotine dependence, cigarettes, uncomplicated; F25.9 Schizoaffective disorder, unspecified; F31.9 Bipolar disorder, unspecified; F19.24 Other psychoactive substance dependence with psychoactive substance-induced mood disorder; E03.9 Hypothyroidism, unspecified; G47.00 Insomnia, unspecified; R94.31 Abnormal electrocardiogram [ECG] [EKG]; Z51.81 Encounter for therapeutic drug level monitoring; Z91.410 Personal history of adult physical and sexual abuse
CPT/HCPCS: 36415; 80053; 81003; 81025; 85027; 86593; 93005; 93010